=== PATIENT | male | born 1945 | race Caucasian/White ===

== ENCOUNTER 2025-08-11 11:24 | Outpatient (CLI) | payer OTHER, SELFPAY ==
--- NOTE | ~2025-08-11 | XR_ITS ---
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 Findings: No acute fracture or malalignment. Severe degenerative changes Soft tissues unremarkable. Impression: No acute fracture or malalignment. Reviewed, dictated and finalized at location P. R HELPER Impression: No acute fracture or malalignment.
== END 2025-08-11 11:25 | disposition home or self-care (01) ==
LOC: MICIMG 11:26
PROVIDERS: PCP Family Medicine Adolescent Medicine; Visit Provider Family Medicine Adolescent Medicine
DX: M19.111 Post-traumatic osteoarthritis, right shoulder (principal)
CPT/HCPCS: 73030

== ENCOUNTER 2025-09-02 08:59 | Outpatient (CLI) | payer OTHER, SELFPAY ==
--- NOTE | ~2025-09-02 | CT_ITS ---
EXAMINATION: CT_STKSHORTWO_CT DATE: 09/02/2025 09:55 INDICATION: Right shoulder osteoarthritis for preoperative planning TECHNIQUE: High resolution computed tomography (CT) of the right shoulder was performed without intravenous contrast. Additional sagittal and coronal reconstructions were performed. Automated exposure control and iterative reconstruction technique were employed. The dose-length product was 250.33 mGy-c m. COMPARISON: Radiographs dated 08/11/2025 FINDINGS: No fracture or traumatic malalignment. Advanced right glenohumeral osteoarthritis with remodeling with loss of bone stock at the glenoid with posterior inferior predominance where there is also a large marginal osteophyte formation. Additional remodeling and loss of bone stock along the medial aspect of the humeral head with additional large marginal osteophytes along the inferior and posterior aspect the humeral head. Moderate to severe osteoarthritis with moderate-sized inferiorly directed marginal osteophytes at the acromioclavicular joint. Ankle joint effusions or other abnormal fluid collections identified. No evident asymmetric muscular atrophy of the rotator cuff or remaining shoulder girdle. Visualized portion of the right mid and upper lung are clear. No pathologically enlarged lymphadenopathy at the right axilla, right hilum or visualized right side of the mediastinum. IMPRESSION: 1. 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 Reviewed, dictated and finalized at location A. OWS INFRASTRUCTURE ENGINEER IMPRESSION: 1. Advanced right glenohumeral and moderate to severe acromioclavicular osteoar thritis.
--- OUTSIDE RECORDS SUMMARY | 2025-09-02 09:40 | XMS_ITS | Clinical Summary ---
Author Organization [facility] Address [address] [place] [id number] Care Team Providers Care Product Safety Manager Name Role Phone Unavailable Primary Care Provider Unavailabl e Social History Tobacco Use Types Packs/Day Years Used Date Smoking Tobacco: Never Assessed Sex and Gender Information Value Date Recorded Sex Assigned at Not on file Legal Sex Male 10:34 AM CDT Gender Identity Not on file Sexual Orientation Not on file Plan of Treatment Upcoming Encounters Date Type Department Care Team (Late st Contact Info) Description 10/21/2025 9:50 AM SENIOR ESCROW OFFICER Office Visit [facility] - [place] [address] [place] [address] [phone] Evelia Razo MD [address] [place] [address] [phone] Health Maintenance Due Date Last Done Comments Hepatitis C 1963 DTaP, Tdap and Td Vaccines ( 1 - Tdap) 1966 Pneumococcal Vaccine: 50+ Ye ars (1 of 1 - PCV) 1997 Zoster Vaccines (1 of 2) 1997 Annual Medicare Wellness Visit 2012 RSV Immunization or 60+ Years (1 - 1-dose 75+ series) 2022 COVID-19 Vaccine ( - 2024-2 6 season) 2025 Influenza Adult (#1) 2025 Hepatitis A Vaccines Aged Out No long er eligible based on patient's age to complete this topic Meningococcal B Vaccine Aged Out No l onger eligible based on patient's age to complete this topic Meningococcal Vaccine Aged Out No juani demar eligible based on patient's age to complete this topic RSV Immunizations Under 20 Months Aged Out No longer eligible based on patient's age to complete this topic Insurance [employer]
--- NOTE | 2025-09-02 09:48 | ECG_ITS ---
Test Date: 2025-09-02 09:59:25 Measurements Intervals [place] Rate: 70 P: 42 ME: 154 QRS: 13 QRSD: 93 T: 35 QT: 367 QTc: 398 Interpretive Statements SINUS RHYTHM INCOMPLETE RIGHT BUNDLE BRANCH BLOCK BASELINE ARTIFACT- I, II, III, AVR, AVL, AVF BORDERLINE ECG No previous ECG available for comparison Electronically Signed On 09-02-2025 10:13:06 PLUSH CUTTER by Juan Luis Garvin D.O.
== END 2025-09-02 09:00 | disposition home or self-care (01) ==
PROVIDERS: PCP Family Medicine Adolescent Medicine; Visit Provider Orthopaedic Surgery
DX: R94.31 Abnormal electrocardiogram [ECG] [EKG] (principal); M19.111 Post-traumatic osteoarthritis, right shoulder; M19.011 Primary osteoarthritis, right shoulder; I45.19 Other right bundle-branch block; I70.0 Atherosclerosis of aorta
CPT/HCPCS: 73200; 93005